=== PATIENT | female | born 1955 | race Caucasian/White ===

== ENCOUNTER 2017-09-07 16:57 | Emergency (ER) | payer OTHER ==
[~2017-09-07] VITALS: Ht 152.4 cm; Wt 81.6 kg
[~2017-09-07 16:57] MED LIST: FLOVENT 110MCG7.9 GM IH; NABUMETONE500 MG PO; PERCOCET 5/3251 TAB PO; PROVENTIL3 ML/2.5 M IH; TUSSIONEX PENNKI5 ML PO; ZITHROMAX500 MG PO; ZYNCOF 20-400120 ML PO
== END 2017-09-07 18:32 | disposition home or self-care (01) ==
LOC: ER 16:57
DX: R42 Dizziness and giddiness (principal)

== ENCOUNTER 2017-10-25 18:50 | Emergency (ER) | payer OTHER ==
[~2017-10-25] VITALS: Ht 152.4 cm; Wt 81.6 kg
[2017-10-26] MEDS ORDERED: ALBUTEROL2.5 MG/3 M IH (01:51)
[2017-10-26] MEDS ORDERED: FLOVENT HFA10.6 GM IH (01:51)
[2017-10-26] MEDS ORDERED: ZITHROMAX500 MG PO (01:51)
[2017-10-26] MEDS ORDERED: ZYNCOF 20-400120 ML PO (01:51)
== END 2017-10-26 01:47 | disposition home or self-care (01) ==
LOC: ER 18:50
DX: J20.9 Acute bronchitis, unspecified (principal)

== ENCOUNTER 2025-05-29 15:02 | Inpatient (IN) | payer OTHER ==
[~2025-05-29] VITALS: Ht 152.4 cm; Wt 79.8 kg
[~2025-05-29 15:02] MED LIST changes: +ALBUTEROL2.5 MG/3 M IH; +FLOVENT HFA10.6 GM IH
--- NOTE | 2025-05-29 15:16 | NUR ---
PTE. REFIERE MALESTAR GENERALIZADO , MAREOS , VOMITOS , MOLESTIA EN PECHO CON JEANMARIE VILLATORO DE EVOLUCION.
[2025-05-29] MEDS ORDERED: ANTIVERT25 M2 PO (15:21)
[2025-05-29] MEDS ORDERED: NORVASC5 MG PO (15:21)
[2025-05-29] MEDS ORDERED: MECLIZINE HCL 25 MG TABLET PO STA (17:09)
[2025-05-29] MEDS ORDERED: MECLIZINE HCL 25 MG TABLET PO ONE (17:25)
--- NOTE | 2025-05-29 17:58 | NUR ---
SE ORIENTA PTE SOBRE TX MEDICO EL CUAL REFIERE ENTENDER.SE LE EXTRAEN MUESTRAS BAJO MEDIDAS ASEPTICAS,SE ADMINISTRA MEDICAMENTO.
[2025-05-29 18:24] LABS: BASO % 0.3 % (0.1-1.2); EOS # 0.00 (0.04-0.54); EOS % 0.0 % (0.7-7.0); LYMPH # 1.21 (1.18-3.74); LYMPH % 8.0 % (19.3-53.1); MEAN PLATELET VOLUME 9.70 fl (9.4-12.4); MONO # 1.22 (0.24-0.82); MONO % 8.1 % (4.7-12.5); NEUT # 12.51 (1.56-6.13); NEUT % 82.9 % (34.0-71.1); RED CELL DISTRIBUTION WIDTH 14.0 % (11.6-14.4)
--- NOTE | 2025-05-29 18:27 | NUR ---
SE ORIENTA A PCIENTE SOBRE TX MEDICO Y JAZMIN REFIERE ENTENDER Y ACEPTAR. SE VUELVEN A PRADIP MUESTRAS DE LAB CANCELADAS BAJO MEDIDAS ASEPTICAS.
[2025-05-29] MEDS ORDERED: RINGERS SOLUTION,LACTATED 1,000 ML IV STA (18:31)
--- NOTE | 2025-05-29 18:31 | NUR ---
SE AUNDREA TEMPERATURA A PACIENTE Y LA MISMA SALE CON FIEBRE. SE PROCEDE A NOTIFICAR LOS RESULTADOS AL DR. BALLARD
[2025-05-29] MEDS ORDERED: FAMOTIDINE/PF 20 MG/2 ML VIAL IV PUSH STA (18:32)
[2025-05-29] MEDS ORDERED: ONDANSETRON HCL 2 MG/ML VIAL IV STA (18:32)
[2025-05-29 18:37] LABS: COVID-19 AG NEGATIVE (NEGATIVE)
[2025-05-29 19:00] LABS: ALT/SGPT 68.0 U/L (12-78); AST/SGOT 55.0 U/L (15-37); BILIRUBIN TOTAL 0.58 mg/dL (0.3-1.2); BUN CREA RATIO 21.0 (7.0-25.0); CREATININE SERUM 0.96 mg/dL (0.55-1.02); GFR 57.29; GLOBULINA 4.1 G/DL (2.4-3.5); GLUCOSE FASTING 164.0 mg/dL (65-100); OSMOLALITY SERUM 278.0 MOSM/KG (275-295)
[2025-05-29] MEDS ORDERED: ONDANSETRON HCL 2 MG/ML VIAL ONE (19:24)
[2025-05-29] MEDS ORDERED: FAMOTIDINE/PF 20 MG/2 ML VIAL ONE (19:24)
--- NOTE | 2025-05-29 19:49 | NUR ---
SE ORIENTA PACIENTE SOBRE TX MEDICO EL CUAL INDICA ENTEDNER. SE ADMINISTRA MEDICAMENTO PENNIE ORDEN MEDICA.
--- NOTE | 2025-05-29 20:53 | NUR ---
SE LE HACE ENTREGA A PACIENTE ENVASE PARA COLECTA DE U/A.
[2025-05-29] MEDS ORDERED: ACETAMINOPHEN 500 MG GEL..CAP PO ONE (20:58)
--- NOTE | 2025-05-29 21:45 | NUR ---
SE LE ADMINISTRA A PACIENTE TYLENOL 1GM PO YA QUE PACIENTE REFIERE NO TENER NAUCEAS.
[2025-05-29 22:22] LABS: URINE APPEARANCE Clear; URINE BILIRRUBIN Negative (NEGATIVE); URINE BLOOD Large; URINE COLOR Yellow; URINE GLUCOSE Negative (NEGATIVE); URINE KETONE 15 (NEGATIVE); URINE LEUKOCYTE Trace; URINE NITRATE Negative; URINE UROBILINOGEN 1.0 E.U./dl
[2025-05-29 22:26] LABS: URINE BACTERIA 566.3 uL (0.0-1933); URINE EPITHELIAL CELLS 44.7 uL (0.0-38.8); URINE RBC 184.6 uL (0.0-20.8); URINE WBC 34.4 uL (0.0-23.2)
[2025-05-29 22:39] LABS: URINE CAST 1.02 uL (0.0-1.40); URINE PROTEIN 100 (NEGATIVE)
[2025-05-30] MEDS ORDERED: ACETAMINOPHEN 500 MG GEL..CAP PO ONE ×2 (04:09→15:37)
--- NOTE | 2025-05-30 04:22 | NUR ---
SE ADMINSTRA TYLENOL 1,000 MG PENNIE PROTOCOL
[2025-05-30 05:53] LABS: BASO % 0.4 % (0.1-1.2); EOS # 0.00 (0.04-0.54); EOS % 0.0 % (0.7-7.0); LYMPH # 0.96 (1.18-3.74); LYMPH % 7.3 % (19.3-53.1); MEAN PLATELET VOLUME 9.60 fl (9.4-12.4); MONO # 0.90 (0.24-0.82); MONO % 6.8 % (4.7-12.5); NEUT # 11.18 (1.56-6.13); NEUT % 85.0 % (34.0-71.1); RED CELL DISTRIBUTION WIDTH 14.1 % (11.6-14.4)
[2025-05-30 06:15] LABS: LYMPHOCYTE MAN 2.0 %; MONOCYTE MAN 7.0 %; NEUTROPHILS MAN 91.0 %
[2025-05-30 06:16] LABS: ERYTHROCYTE SEDIMENTATION RATE > 130 mm/hr (0-30)
[2025-05-30 06:22] LABS: ALT/SGPT 72.0 U/L (12-78); AST/SGOT 42.0 U/L (15-37); BILIRUBIN TOTAL 0.56 mg/dL (0.3-1.2); BUN CREA RATIO 20.0 (7.0-25.0); CREATININE SERUM 0.79 mg/dL (0.55-1.02); GFR 71.74; GLOBULINA 3.7 G/DL (2.4-3.5); GLUCOSE FASTING 125.0 mg/dL (65-100); OSMOLALITY SERUM 275.0 MOSM/KG (275-295)
[2025-05-30] MEDS ORDERED: CEFTRIAXONE SODIUM 2,000 MG VIAL IV STA (07:51)
[2025-05-30] MEDS ORDERED: LEVALBUTEROL HCL 0.63 MG/3 ML SOLUTION IH SCH (08:00)
[2025-05-30] MEDS ORDERED: BUDESONIDE 0.5 MG/2 ML AMPUL.NEB IH SCH (09:00)
[2025-05-30] MEDS ORDERED: ACETAMINOPHEN 500 MG GEL..CAP PO STA (15:36)
--- NOTE | 2025-05-30 15:45 | NUR ---
SE AUNDREA S/V A PACIENTE Y ESTOS SON NOTIFICADOS AL DR. SHAFFER. EL MISMO INDICA POR ORDEN MEDICA VERBAL ADMINISTRAR ACETAMINOPHEN PO 2 TABLETAS DE 500MG.
--- NOTE | 2025-05-30 15:47 | NUR ---
SE ORIENTA A PACIENTE SOBRE TX MEDICO Y JAZMIN REFIERE ENTENDER Y ACEPTAR EL MISMO. SE PROCEDE A ADMINISTRAR MEDICAMENTO PENNIE ORDEN MEDICA BAJO MEIDDAS ASEPTICAS.
[2025-05-30] MEDS ORDERED: METHYLPREDNISOLONE SOD SUCC 125 MG VIAL IV ONE (16:15)
[2025-05-30] MEDS ORDERED: KETOROLAC TROMETHAMINE 15 MG VIAL IU ONE (16:15)
[2025-05-30] MEDS ORDERED: ACETAMINOPHEN 500 MG GEL..CAP PO PRN (16:15)
[2025-05-30] MEDS ORDERED: ONDANSETRON HCL 4 MG in 0.9 % SODIUM CHLORIDE 50 ML IV PRN (16:15)
[2025-05-30] MEDS ORDERED: IPRATROPIUM BROMIDE 0.5 MG/2.5 ML AMPUL.NEB IH SCH ×2 (17:00)
[2025-05-30 17:04] VITALS: BP 155/65
[2025-05-30] MEDS ORDERED: METHYLPREDNISOLONE SOD SUCC 125 MG VIAL ONE (17:29)
[2025-05-30] MEDS ORDERED: KETOROLAC TROMETHAMINE 30 MG VIAL ONE (17:29)
[2025-05-30] MEDS ORDERED: ONDANSETRON HCL 2 MG/ML VIAL ONE (17:29)
[2025-05-30] MEDS ORDERED: PIPERACILLIN/TAZOBACTAM SODIUM 3.375 GM VIAL IV ONE (17:30)
[2025-05-30] MEDS ORDERED: PIPERACILLIN/TAZOBACTAM SODIUM 3.375 GM in DEXTROSE 5 % IN WATER 100 ML IV SCH (18:00)
[2025-05-30 19:12] LABS: INR 1.19
[2025-05-30 19:52] LABS: URINE APPEARANCE Clear; URINE BILIRRUBIN Negative (NEGATIVE); URINE BLOOD Large; URINE COLOR Dark Yellow; URINE GLUCOSE Negative (NEGATIVE); URINE LEUKOCYTE Trace; URINE NITRATE Negative; URINE UROBILINOGEN 1.0 E.U./dl
[2025-05-30 19:55] LABS: URINE BACTERIA 254.3 uL (0.0-1933); URINE EPITHELIAL CELLS 25.8 uL (0.0-38.8); URINE RBC 270.7 uL (0.0-20.8); URINE WBC 29.5 uL (0.0-23.2)
[2025-05-30 19:59] LABS: URINE CAST 0.29 uL (0.0-1.40); URINE KETONE 40 (NEGATIVE); URINE PROTEIN 100 (NEGATIVE)
[2025-05-30] MEDS ORDERED: 0.9 % SODIUM CHLORIDE 1,000 ML IV SCH (20:15)
[2025-05-30] MEDS ORDERED: 0.9 % SODIUM CHLORIDE 1,000 ML IV ONE (20:15)
[2025-05-30 21:31] VITALS: BP 134/63; O2SAT 95
[2025-05-31 01:05] VITALS: BP 148/72; O2SAT 99
[2025-05-31] MEDS ORDERED: FAMOTIDINE/PF 20 MG in 0.9 % SODIUM CHLORIDE 8 ML IV PUSH SCH (09:00)
[2025-05-31] MEDS ORDERED: AMLODIPINE BESYLATE 5 MG TABLET PO SCH (09:00)
[2025-05-31] MEDS ORDERED: AMINO ACIDS/PROTEIN HYDROLYS 30 ML BLIST.PACK PO SCH (09:00)
[2025-05-31] MEDS ORDERED: ENOXAPARIN SODIUM 40 MG/0.4 ML SYRINGE SUBCUTANEO SCH (09:00)
[2025-05-31 09:24] VITALS: BP 137/80; O2SAT 96
[2025-05-31] MEDS ORDERED: AZITHROMYCIN 500 MG VIAL IV STA (14:20)
[2025-05-31] MEDS ORDERED: AZITHROMYCIN 500 MG VIAL IV ONE (15:55)
[2025-05-31] MEDS ORDERED: LACTOBACILLUS ACIDOPHILUS 1 CAP CAP PO SCH (17:00)
[2025-05-31 17:19] VITALS: BP 148/80; O2SAT 96
[2025-06-01 01:05] VITALS: BP 114/70; O2SAT 98
[2025-06-01] MEDS ORDERED: AZITHROMYCIN 500 MG VIAL IV ONE (08:53)
[2025-06-01 09:00] VITALS: BP 146/72; O2SAT 93
[2025-06-01] MEDS ORDERED: AZITHROMYCIN 500 MG VIAL IV SCH (09:00)
[2025-06-01 17:41] VITALS: BP 122/60
[2025-06-01 21:20] LABS: ABG PH 7.530 (7.35-7.45); ABG PO2 71.0 mmHg (80-100); BICARBONATE 26.7 mmol/l (23-25)
[2025-06-01 21:21] LABS: o2 21 %
[2025-06-02 02:39] VITALS: BP 143/79; O2SAT 94
[2025-06-02 06:24] LABS: BASO % 0.1 % (0.1-1.2); EOS # 0.02 (0.04-0.54); EOS % 0.2 % (0.7-7.0); LYMPH # 1.71 (1.18-3.74); LYMPH % 14.1 % (19.3-53.1); MEAN PLATELET VOLUME 10.50 fl (9.4-12.4); MONO # 1.24 (0.24-0.82); MONO % 10.2 % (4.7-12.5); NEUT # 8.93 (1.56-6.13); NEUT % 73.7 % (34.0-71.1); RED CELL DISTRIBUTION WIDTH 14.5 % (11.6-14.4)
[2025-06-02 06:57] LABS: BUN CREA RATIO 25.0 (7.0-25.0); CREATININE SERUM 0.48 mg/dL (0.55-1.02); GFR 127.49; GLUCOSE FASTING 75.0 mg/dL (65-100); OSMOLALITY SERUM 278.0 MOSM/KG (275-295)
[2025-06-02] MEDS ORDERED: AZITHROMYCIN 500 MG VIAL IV ONE (08:23)
[2025-06-02 08:25] VITALS: BP 130/75
[2025-06-02 17:25] VITALS: BP 137/71; O2SAT 95
[2025-06-02] MEDS ORDERED: POTASSIUM CHLORIDE IN WATER 40 MEQ/100 ML PIGGYBAG IV ONE (23:45)
[2025-06-03 02:40] VITALS: BP 148/82; O2SAT 94
[2025-06-03 07:04] LABS: BUN CREA RATIO 21.0 (7.0-25.0); CREATININE SERUM 0.52 mg/dL (0.55-1.02); GFR 116.24; GLUCOSE FASTING 119.0 mg/dL (65-100); OSMOLALITY SERUM 284.0 MOSM/KG (275-295)
[2025-06-03 08:53] VITALS: BP 142/75
[2025-06-03] MEDS ORDERED: AZITHROMYCIN 500 MG VIAL IV ONE (08:56)
[2025-06-03] MEDS ORDERED: AMINO ACIDS/PROTEIN HYDROLYS 30 ML BLIST.PACK PO SCH (09:00)
[2025-06-03 20:07] VITALS: BP 125/75
[2025-06-04 01:28] VITALS: BP 124/77; O2SAT 94
[2025-06-04] MEDS ORDERED: DEXTROSE 5%-WATER 100ML IV.SOLN ONE (05:15)
[2025-06-04 06:17] LABS: BASO % 0.5 % (0.1-1.2); EOS # 0.19 (0.04-0.54); EOS % 2.3 % (0.7-7.0); LYMPH # 1.63 (1.18-3.74); LYMPH % 19.8 % (19.3-53.1); MEAN PLATELET VOLUME 10.20 fl (9.4-12.4); MONO # 0.54 (0.24-0.82); MONO % 6.6 % (4.7-12.5); NEUT # 5.64 (1.56-6.13); NEUT % 68.4 % (34.0-71.1); RED CELL DISTRIBUTION WIDTH 14.3 % (11.6-14.4)
[2025-06-04 06:48] LABS: BUN CREA RATIO 16.0 (7.0-25.0); CREATININE SERUM 0.44 mg/dL (0.55-1.02); GFR 140.96; GLUCOSE FASTING 108.0 mg/dL (65-100); OSMOLALITY SERUM 285.0 MOSM/KG (275-295)
[2025-06-04 07:25] LABS: ERYTHROCYTE SEDIMENTATION RATE 108 mm/hr (0-30)
[2025-06-04 09:03] VITALS: BP 147/80; O2SAT 94
[2025-06-04] MEDS ORDERED: AZITHROMYCIN 500 MG VIAL IV ONE (09:34)
[2025-06-04] MEDS ORDERED: POTASSIUM CHLORIDE IN WATER 40 MEQ/100 ML PIGGYBAG IV NR (18:15)
[2025-06-04 19:06] VITALS: BP 156/92
[2025-06-05 02:20] VITALS: BP 137/75; O2SAT 96
[2025-06-05 06:56] LABS: BUN CREA RATIO 22.0 (7.0-25.0); CREATININE SERUM 0.55 mg/dL (0.55-1.02); GFR 108.96; GLUCOSE FASTING 123.0 mg/dL (65-100); OSMOLALITY SERUM 288.0 MOSM/KG (275-295)
[2025-06-05] MEDS ORDERED: AZITHROMYCIN 500 MG VIAL IV ONE (09:01)
[2025-06-05 09:57] VITALS: BP 138/82; O2SAT 96
[2025-06-05 18:38] VITALS: BP 153/79; O2SAT 98
== END 2025-06-05 19:03 | disposition home or self-care (01) | DRG 193 ==
LOC: ER 15:02 → MEDJ 05-30 16:29
PROVIDERS: General Practice; Physician Assistant Medical; ADMIT Internal Medicine; ATTEND Internal Medicine
PROC: BB24ZZZ Computerized Tomography (CT Scan) of Bilateral Lungs (ICD-10-PCS; principal; 2025-05-29)
PROC: BW21ZZZ Computerized Tomography (CT Scan) of Abdomen and Pelvis (ICD-10-PCS; 2025-05-29)
PROC: 3E0F7GC Introduction of Other Therapeutic Substance into Respiratory Tract, Via Natural or Artificial Opening (ICD-10-PCS; 2025-05-30)
PROC: B020ZZZ Computerized Tomography (CT Scan) of Brain (ICD-10-PCS; 2025-05-31)
DX: J18.1 Lobar pneumonia, unspecified organism (principal); A41.9 Sepsis, unspecified organism; J45.20 Mild intermittent asthma, uncomplicated; D72.829 Elevated white blood cell count, unspecified; E87.6 Hypokalemia; I10 Essential (primary) hypertension; R42 Dizziness and giddiness